=== PATIENT | male | born 1970 | race Caucasian/White ===

== ENCOUNTER 2016-11-30 15:30 | Emergency (ER) | payer MEDICAID ==
[2016-11-30 15:49] VITALS: BP 138/85
--- NOTE | 2016-11-30 16:09 | EDM.PDOC ---
ED HPI GENERAL MEDICAL PROBLEM - General Chief Complaint: Lower Extremity Injury/Pain Stated Complaint: LEFT CALF PAIN Time Seen by Provider: 11/30/16 15:55 Source of Information: Reports: Patient History Limitations: Reports: No Limitations - History of Present Illness INITIAL COMMENTS - FREE TEXT/NARRATIVE: 46 yo male was pushing a stalled car and felt a pop in his L calf. Here for evaluation. Has crutches at home. Onset: Today Onset Date: 11/30/16 Duration: Minutes: Location: Reports: Lower Extremity, Left Quality: Reports: Stabbing (With use, minimal pain at rest. ) Improves with: Reports: Immobilization Worsens with: Reports: Movement Context: Reports: Exercise (pushing a stalled car.) Associated Symptoms: Reports: No Other Symptoms, Other (none) Treatments IMAGING TECHNOLOGIST: Reports: Other (see below) (none) Left Leg Pain Score (Numeric/FACES): 7 - Related Data Allergies Allergy/AdvReac Type Severity Reaction Status Date / Time No Known Allergies Allergy Verified 11/30/16 15:51 Home Meds: Home Meds ClonazePAM [KlonoPIN] 1 tab PO DAILY 11/30/16 [History] Dextroamphetamine/Amphetamine [Adderall Xr 30 mg Capsule] 1 tab PO DAILY [History] PARoxetine [Paxil] 30 mg PO DAILY 11/30/16 [History] Past Medical History Respiratory History: Reports: Sleep Apnea, Other (See Below) Musculoskeletal History: Reports: Fracture Psychiatric History: Reports: Anxiety, Depression, Other (See Below) Other Psychiatric History: narcolepsy with driving Social & Family History - Tobacco Use Smoking Status *Q: Light Tobacco Smoker Years of Tobacco use: 20 Packs/Tins Daily: 0.5 - Recreational Drug Use Recreational Drug Use: Yes Recreational Drug Type: Reports: Marijuana/Hashish Recreational Drug Use Frequency: Daily Review of Systems - Review of Systems Review Of Systems: See Below Constitutional: Reports: No Symptoms Musculoskeletal: Reports: Leg Pain (L calf) Skin: Reports: No Symptoms Neurological: Reports: No Symptoms Trauma Exam - Physical Exam Exam: See Below General Appearance: Reports: Alert, WD/WN, No Apparent Distress Head: Reports: Atraumatic, Normocephalic Extremities: No Pedal Edema, Tenderness, Other (L calf is tender. No visible swelling. Active or passive foot dorsiflexion or plantar flexion are both tender. No visible bruising. No erythema. ) Neurologic: Reports: No Motor/Sensory Deficits, Alert, Normal Mood/Affect, Oriented x 3 Skin: Reports: Normal Color, Warm/Dry Course - Vital Signs Text/Narrative:: 4 inch RAYO applied to calf. Last Recorded V/S: Last Vital Signs Temp 36.2 C 11/30/16 15:49 Pulse 91 11/30/16 15:49 Resp 16 11/30/16 15:49 BP 138/85 11/30/16 15:49 Pulse Ox 98 11/30/16 15:49 Departure - Departure Time of Disposition: 16:08 Disposition: Home, Self-Care 01 Condition: good Clinical Impression: Gastrocnemius muscle strain Qualifiers: Encounter type: initial encounter Laterality: left Qualified Code(s): S86.112A - Strain of other muscle(s) and tendon(s) of posterior muscle group at lower leg level, left leg, initial encounter - Discharge Information Referrals: PCP,None [Primary Care Provider] - Forms: ED Department Discharge Additional Instructions: Rest, elevation, and RAYO wrap today. Crutch walking recommended today. Gradually resume normal activity starting tomorrow. Acetaminophen today as needed for pain relief. May add ibuprofen as needed starting tomorrow. Recheck in the clinic as needed.
== END 2016-11-30 16:19 | disposition home or self-care (01) ==
LOC: JP.ED 15:30
DX: S86.112A Strain of other muscle(s) and tendon(s) of posterior muscle group at lower leg level, left leg, initial encounter (principal); F41.9 Anxiety disorder, unspecified; F32.9 Major depressive disorder, single episode, unspecified; F17.210 Nicotine dependence, cigarettes, uncomplicated; Z79.899 Other long term (current) drug therapy; X58.XXXA Exposure to other specified factors, initial encounter
CPT/HCPCS: 99282; 99283